=== PATIENT | male | born 1975 | race Caucasian/White ===

== ENCOUNTER 2018-04-04 20:02 | Emergency (ER) | payer SELFPAY ==
[~2018-04-04] VITALS: Ht 172.7 cm; Wt 77.0 kg
[2018-04-04 20:11] VITALS: BP 132/77
== END 2018-04-04 23:29 | disposition left against medical advice (07) ==
LOC: ER 20:59
DX: Z53.21 Procedure and treatment not carried out due to patient leaving prior to being seen by health care provider (principal)

== ENCOUNTER 2018-10-19 09:02 | Emergency (ER) | payer SELFPAY ==
[~2018-10-19] VITALS: Ht 177.8 cm; Wt 80.0 kg
[2018-10-19] MEDS ORDERED: OXYCODONE HCL/ACETAMINOPHEN 5/325MG TABLET PO ONE (09:30)
[2018-10-19 13:32] VITALS: BP 148/90
== END 2018-10-19 13:56 | disposition short-term general hospital (02) ==
LOC: ER 09:02 → EDSEX 09:02 → ER 13:56
DX: S32.018A Other fracture of first lumbar vertebra, initial encounter for closed fracture (principal); S32.028A Other fracture of second lumbar vertebra, initial encounter for closed fracture; S92.002A Unspecified fracture of left calcaneus, initial encounter for closed fracture; W17.89XA Other fall from one level to another, initial encounter; Y93.89 Activity, other specified; Y92.89 Other specified places as the place of occurrence of the external cause; Y99.8 Other external cause status
CPT/HCPCS: 29515; 72070; 72100; 72170; 73590; 73600; 73620; 82962; 99285